=== PATIENT | female | born 1965 | race Caucasian/White ===

== ENCOUNTER → 2016-10-24 | Outpatient (CLI) | payer BC ==
[~2016-10-24] MED LIST: FENO200C PO; GABA-338 PO; HYDR-2049 PO; ICOS1CAP PO; LEVO125T4 PO; METO-68 PO; OMEP40CA52 PO
== END ==
LOC: WC.BC 16:02
DX: Z12.31 Encounter for screening mammogram for malignant neoplasm of breast (principal); Z80.3 Family history of malignant neoplasm of breast
CPT/HCPCS: 77063; G0202